=== PATIENT | male | born 1950 | race Caucasian/White ===

== ENCOUNTER 2022-04-07 04:52 | Observation (INO) | payer MEDICARE ==
[2022-04-07] MEDS ORDERED: Ondansetron PF 4 MG/2 ML Vial ONE (05:07)
[2022-04-07] MEDS ORDERED: Morphine 4 MG/ML VIAL ONE (05:07)
[2022-04-07] MEDS ORDERED: Ketorolac Tromethamine 30 MG/ML VIAL ONE (05:08)
[2022-04-07 05:27] LABS: #Basophils 0.1 10x3/uL (0.0-0.2); #Eosinphils 0.3 10x3/uL (0.0-0.5); #Monocytes 0.8 10x3/uL (0.0-1.1); #Neutrophils 3.9 10x3/uL (1.5-8.4); %Basophils 1.8 % (0.0-2.0); %Eosinophils 5.1 % (0.0-6.0); %Monocytes 12.4 % (0.0-10.0); %Neutrophils 62.4 % (40.0-75.0); Hemoglobin 14.2 g/dL (13.5-17.5); Mean Corpuscular HGB CONC 33.8 g/dL (32.0-36.0); Mean Corpuscular Hemoglobin 30.9 pg (27.0-33.0); Mean Corpuscular Volume 91.3 fl (81.2-95.1); Platelet Count 175 10x3/uL (150-450); RBC Distribution Width 14.1 % (11.5-14.5); White Blood Cell (WBC) Count 6.3 10x3/uL (3.5-10.5)
[2022-04-07 05:50] LABS: ALT (SGPT) 18 U/L (8-55); AST (SGOT) 31 U/L (5-34); Albumin 3.8 g/dL (3.4-4.8); Alkaline Phosphatase 110 U/L (40-110); Anion Gap 17 mmol/L (10-20); BUN (Urea Nitrogen) 15 mg/dL (8.4-25.7); Bilirubin, Total 1.8 mg/dL (0.2-1.2); Calc. Creatinine Clearance 0 mL/min (70-130); Calcium 8.8 mg/dL (7.8-10.44); Carbon Dioxide 24 mmol/L (23-31); Chloride 104 mmol/L (98-107); Globulin 2.7 g/dL (2.4-3.5); Glucose 120 mg/dL (83-110); Potassium 4.4 mmol/L (3.5-5.1); Protein, Total 6.5 g/dL (5.8-8.1); Sodium 141 mmol/L (136-145)
[2022-04-07 06:34] LABS: Bilirubin Neg (Negative); Blood, Urine 10 (Negative); Clarity Clear (Clear); Glucose, Urine (Dipstick) Normal (Negative); Ketone, Urine Negative (Negative); Leukocyte 500 (Negative); Nitrite Negative (Negative); Protein, Urine (Dipstick) Negative (Neg-Trace); Specific Gravity, Urine 1.015 (1.002-1.036); Urobilinogen Normal mg/dL (Less than 2)
[2022-04-07 06:43] LABS: Bacteria/HPF Rare-Few HPF (None Seen); RBC/HPF 0-3 HPF (0-3); Squamous Epithelial 0-3 HPF (0-3)
[2022-04-07 07:52] LABS: SARS-CoV-2 NAA Rapid Test DETECTED (NotDetected)
[2022-04-07] MEDS ORDERED: Bisacodyl 5 MG TAB PO PRN (08:14)
[2022-04-07] MEDS ORDERED: Ondansetron PF 4 MG/2 ML Vial IVP PRN (08:14)
[2022-04-07] MEDS ORDERED: Acetaminophen 325 MG TAB PO PRN (08:14)
[2022-04-07] MEDS ORDERED: Ondansetron ODT 4 MG TAB PO PRN (08:14)
[2022-04-07] MEDS ORDERED: Morphine 2 MG/ML VIAL SLOW IVP PRN (08:19)
[2022-04-07] MEDS ORDERED: cefTRIAXone\\ROCEPHIN 2 GM in Sodium Chloride 0.9% 100 ML IVPB SCH (11:45)
[2022-04-07] MEDS ORDERED: Iopamidol 30 ML ONE (13:15)
[2022-04-07] MEDS ORDERED: PROPOFOL 20 ML ONE (16:00)
[2022-04-07] MEDS ORDERED: Fentanyl 100 MCG/2 ML VIAL ONE ×2 (16:00→16:28)
[2022-04-07] MEDS ORDERED: Levofloxacin 500 mg/D5W 100 ml Premix Bag ONE (16:17)
[2022-04-07] MEDS ORDERED: ePHEDrine Sulfate 50 MG/10 ML VIAL ONE (16:26)
[2022-04-07] MEDS ORDERED: B & O ONE (16:38)
[2022-04-07 18:29] VITALS: BMI 24.1
[2022-04-07] MEDS: Sodium Chloride 0.9% 1,000 ML IV SCH (18:42)
[2022-04-07] MEDS: Senokot S 8.6-50 MG TAB PO PRN (20:11)
[2022-04-07] MEDS: Ketorolac Tromethamine 30 MG/ML VIAL IVP PRN (20:20)
[2022-04-08] MEDS: Sodium Chloride 0.9% 1,000 ML IV SCH (05:08)
[2022-04-08] MEDS: Ketorolac Tromethamine 30 MG/ML VIAL IVP PRN ×2 (05:08→11:03)
[2022-04-08] MEDS: Senokot S 8.6-50 MG TAB PO PRN (08:55)
[2022-04-08] MEDS ORDERED: cefTRIAXone\\ROCEPHIN 2 GM in Sodium Chloride 0.9% 100 ML IVPB SCH (12:00)
[2022-04-08] MEDS ORDERED: Phenazopyridine HCl 97.5 MG TABLET PO SCH (13:00)
[2022-04-08 13:10] VITALS: BP 115/76; TEMP 98.1
[2022-04-09] MEDS ORDERED: Trospium 20 MG TAB PO SCH (09:00)
== END 2022-04-08 18:00 | disposition home or self-care (01) ==
LOC: SUATTDRO 04:52 → CSHERS 04:52 → INTOOBSV 06:56 → CSHTELE 06:56 → CSHERS 15:55 → UNDOADMIN 18:05 → CSHTELE 18:05
PROVIDERS: ADMIT Emergency Medicine; ATTEND Family Medicine
PROC: 0T9680Z Drainage of Right Ureter with Drainage Device, Via Natural or Artificial Opening Endoscopic (ICD-10-PCS; principal; 2022-04-07)
DX: N13.2 Hydronephrosis with renal and ureteral calculous obstruction (principal); N21.0 Calculus in bladder; U07.1 COVID-19; N40.0 Benign prostatic hyperplasia without lower urinary tract symptoms; I10 Essential (primary) hypertension; Z79.899 Other long term (current) drug therapy; Z88.0 Allergy status to penicillin; Z88.5 Allergy status to narcotic agent
CPT/HCPCS: 51600; 52332; 74176; 74430; 80053; 84484; 85025; 87086; 96361; 96374; 96375 ×2; 96376; 99285; C2617; G0378 ×3; U0002; 81003; 81015; J0696; J1885; J1956; J2270; J2405; J2704; J3010; J3490; J7050; Q9967

== ENCOUNTER 2023-05-01 12:57 | Outpatient (CLI) | payer MEDICARE | END 2023-05-01 12:58 | disposition home or self-care (01) | LOC: CSHCT 12:57 | PROVIDERS: ATTEND Urology | DX: N20.2 Calculus of kidney with calculus of ureter (principal); N13.4 Hydroureter; K44.9 Diaphragmatic hernia without obstruction or gangrene; K57.30 Diverticulosis of large intestine without perforation or abscess without bleeding | CPT/HCPCS: 74176 ==

== ENCOUNTER 2023-11-19 16:06 | Inpatient (IN) | payer MEDICARE ==
[~2023-11-19 16:06] MED LIST: Iopamidol 300 61% 100 ML VIAL FS ONE
[2023-11-19 16:28] LABS: Bilirubin Neg (Negative); Blood, Urine 10 (Negative); Clarity Clear (Clear); Glucose, Urine (Dipstick) Normal (Negative); Ketone, Urine Negative (Negative); Leukocyte 500 (Negative); Nitrite Negative (Negative); Protein, Urine (Dipstick) Negative (Neg-Trace); Specific Gravity, Urine 1.015 (1.005-1.030); Urobilinogen Normal mg/dL (Less than 2)
[2023-11-19 16:45] LABS: CAUTI Indications for Culture Pelvic or flank pain; RBC/HPF 0-3 HPF (0-3)
[2023-11-19 16:46] LABS: Bacteria/HPF 2+ HPF (None Seen); Squamous Epithelial 0-3 HPF (0-3)
[2023-11-19 16:47] LABS: Urine Culture Reflex No No
[2023-11-19 17:06] LABS: #Basophils 0.1 10x3/uL (0.0-0.2); #Eosinphils 0.1 10x3/uL (0.0-0.5); #Monocytes 0.6 10x3/uL (0.0-1.1); #Neutrophils 7.5 10x3/uL (1.5-8.4); %Basophils 0.8 % (0.0-2.0); %Eosinophils 0.8 % (0.0-6.0); %Lymphocytes 8.9 % (18.0-47.0); %Monocytes 6.3 % (0.0-10.0); %Neutrophils 82.8 % (40.0-75.0); Hemoglobin 12.9 g/dL (13.5-17.5); Mean Corpuscular HGB CONC 33.1 g/dL (32.0-36.0); Mean Corpuscular Hemoglobin 30.2 pg (27.0-33.0); Mean Corpuscular Volume 91.3 fl (81.2-95.1); Mean Platelet Volume 9.8 fl (7.4-10.4); Platelet Count 207 10x3/uL (150-450); RBC Distribution Width 12.8 % (11.5-14.5); Red Blood Cell (RBC) Count 4.27 10x6/uL (4.32-5.72)
[2023-11-19 17:22] LABS: ALT (SGPT) 17 U/L (8-55); AST (SGOT) 26 U/L (5-34); Alkaline Phosphatase 95 U/L (40-110); Anion Gap 11 mmol/L (10-20); BUN (Urea Nitrogen) 16 mg/dL (8.4-25.7); Bilirubin, Total 1.6 mg/dL (0.2-1.2); Calc. Creatinine Clearance 0 mL/min (70-130); Calcium 8.8 mg/dL (7.8-10.44); Carbon Dioxide 27 mmol/L (23-31); Chloride 105 mmol/L (98-107); Estimated GFR 54; Globulin 2.7 g/dL (2.4-3.5); Glucose 139 mg/dL (83-110); Lipase 43 U/L (8-78); Potassium 3.3 mmol/L (3.5-5.1); Protein, Total 6.7 g/dL (5.8-8.1); Sodium 140 mmol/L (136-145)
[2023-11-19] MEDS ORDERED: Morphine 4 MG/ML VIAL ONE ×2 (17:23→18:32)
[2023-11-19] MEDS ORDERED: Ondansetron PF 4 MG/2 ML Vial ONE ×2 (17:24→18:50)
[2023-11-19 17:38] LABS: Troponin I Less than 0.010 ng/mL (< 0.028)
[2023-11-19] MEDS ORDERED: Famotidine/PF 20 mg/2ml Vial ONE (21:11)
[2023-11-19] MEDS ORDERED: Calcium Carbonate 500 MG ChewTAB PO PRN (21:50)
[2023-11-19] MEDS ORDERED: Senokot S 8.6-50 MG TAB PO PRN (21:50)
[2023-11-19] MEDS ORDERED: Guaifenesin DM 100-10/5 ML UDCUP PO PRN (21:50)
[2023-11-19] MEDS ORDERED: Ipratropium/Albuterol 3 ML NEB NEB PRN (22:03)
[2023-11-19 22:52] VITALS: BMI 26.3
[2023-11-19] MEDS: Lactated Ringer's 1,000 ML IV SCH (23:15)
[2023-11-19] MEDS: LevoFLOXacin 500 mg/D5W 500 MG in Premix 1 BAG IVPB SCH (23:18)
[2023-11-19] MEDS: Pantoprazole 40 MG VIAL IVP SCH (23:20)
[2023-11-19] MEDS: Metoclopramide HCl 10 MG (2 mL) VIAL IVP SCH (23:20)
[2023-11-20] MEDS: Potassium Chloride 20 MEQ in Premix 1 BAG IVPB SCH (00:25)
[2023-11-20] MEDS: Lidocaine 2% Viscous 10 mL, Alum & Magn 30 mL SSW SCH (00:26)
[2023-11-20 01:03] LABS: Troponin I 0.014 ng/mL (< 0.028)
[2023-11-20] MEDS: Morphine 2 MG/ML VIAL SLOW IVP PRN (02:30)
[2023-11-20] MEDS: Ondansetron PF 4 MG/2 ML Vial IVP PRN (02:30)
[2023-11-20 04:07] LABS: #Basophils 0.1 10x3/uL (0.0-0.2); #Eosinphils 0.1 10x3/uL (0.0-0.5); #Monocytes 0.9 10x3/uL (0.0-1.1); #Neutrophils 5.2 10x3/uL (1.5-8.4); %Basophils 1.1 % (0.0-2.0); %Eosinophils 1.4 % (0.0-6.0); %Lymphocytes 14.1 % (18.0-47.0); %Monocytes 12.1 % (0.0-10.0); Hematocrit 36.4 % (38.8-50.0); Mean Corpuscular Hemoglobin 30.8 pg (27.0-33.0); Mean Corpuscular Volume 93.6 fl (81.2-95.1); Mean Platelet Volume 10.3 fl (7.4-10.4); Platelet Count 179 10x3/uL (150-450); RBC Distribution Width 12.7 % (11.5-14.5); Red Blood Cell (RBC) Count 3.89 10x6/uL (4.32-5.72); White Blood Cell (WBC) Count 7.3 10x3/uL (3.5-10.5)
[2023-11-20 04:17] LABS: Anion Gap 11 mmol/L (10-20); BUN (Urea Nitrogen) 16 mg/dL (8.4-25.7); Calc. Creatinine Clearance 69 mL/min (70-130); Calcium 8.3 mg/dL (7.8-10.44); Carbon Dioxide 26 mmol/L (23-31); Chloride 107 mmol/L (98-107); Estimated GFR 63; Glucose 98 mg/dL (83-110); Magnesium 1.9 mg/dL (1.6-2.6); Potassium 3.7 mmol/L (3.5-5.1); Sodium 140 mmol/L (136-145); Troponin I 0.018 ng/mL (< 0.028)
[2023-11-20] MEDS: Mometasone/Formoterol 60 PUFF AER INH SCH (06:30)
[2023-11-20 06:44] LABS: Amphetamine Not Detected (NotDetected); Barbiturates Screen Not Detected (NotDetected); Benzodiazepine Screen Not Detected (NotDetected); Cocaine Metabolite Screen Not Detected (NotDetected); Methadone Not Detected (NotDetected); Methamphetamine Not Detected (NotDetected); Opiate Screen Detected (NotDetected); Oxycodone Screen Not Detected (NotDetected); Phencyclidine (PCP) Not Detected (NotDetected); THC/Cannabinoid Screen Not Detected (NotDetected); Tricyclic Screen Not Detected (NotDetected)
[2023-11-20] MEDS: Folic Acid 1 MG TAB PO SCH (07:58)
[2023-11-20] MEDS: Pantoprazole 40 MG VIAL IVP SCH (07:58)
[2023-11-20] MEDS: Tamsulosin HCl 0.4 MG CAP PO SCH (08:01)
[2023-11-20] MEDS: Multivitamin W/ Minerals 1 TAB PO SCH (08:01)
[2023-11-20] MEDS: predniSONE 5 MG TAB PO SCH ×2 (08:01→23:40)
[2023-11-20] MEDS ORDERED: PAROXETINE HCL 10 MG PO SCH (09:00)
[2023-11-20] MEDS ORDERED: Metoclopramide HCl 10 MG (2 mL) VIAL IVP PRN (11:03)
[2023-11-20] MEDS: Dutasteride 0.5 MG CAP PO SCH (11:11)
[2023-11-20] MEDS ORDERED: hydrALAZINE 20 MG/ML VIAL SLOW IVP PRN (12:58)
[2023-11-20 16:15] LABS: Hemoglobin A1c 5.5 % (4.0-6.0)
[2023-11-20] MEDS ORDERED: Communication Order-Pharmacy FS SCH (17:36)
[2023-11-20] MEDS: Sodium Chloride 0.9% 1,000 ML IV SCH (18:27)
[2023-11-20] MEDS: Metoprolol Tartrate 5 MG (5 mL) VIAL IVP SCH (18:28)
[2023-11-20] MEDS: ALPRAZolam 0.25 MG TAB PO PRN (20:02)
[2023-11-20] MEDS: Enoxaparin 100 MG (1 mL) SYRINGE SC SCH (20:03)
[2023-11-20] MEDS ORDERED: Electrolyte Replacement Protocol FS SCH (20:30)
[2023-11-20] MEDS ORDERED: NIFEdipine XL 30 MG ER.TAB PO SCH (21:00)
[2023-11-20] MEDS ORDERED: Enoxaparin 40 MG (0.4 mL) SYRINGE SC SCH (21:00)
[2023-11-20] MEDS: Ondansetron PF 4 MG/2 ML Vial IVP SCH (21:03)
[2023-11-20] MEDS: Morphine 4 MG/ML VIAL SLOW IVP SCH (21:03)
[2023-11-20] MEDS: Magnesium 2 GM/50 ML(in water) 2 GM in Premix 1 BAG IVPB SCH (22:48)
[2023-11-20] MEDS: Metoprolol Tartrate 5 MG (5 mL) VIAL IVP PRN (22:57)
[2023-11-21 04:23] LABS: Anion Gap 14 mmol/L (10-20); BUN (Urea Nitrogen) 11 mg/dL (8.4-25.7); Calc. Creatinine Clearance 80 mL/min (70-130); Calcium 8.5 mg/dL (7.8-10.44); Carbon Dioxide 25 mmol/L (23-31); Chloride 105 mmol/L (98-107); Estimated GFR 74; Glucose 99 mg/dL (83-110); Magnesium 2.2 mg/dL (1.6-2.6); Potassium 3.6 mmol/L (3.5-5.1); Sodium 140 mmol/L (136-145)
[2023-11-21 04:26] LABS: #Basophils 0.1 10x3/uL (0.0-0.2); #Eosinphils 0.2 10x3/uL (0.0-0.5); #Monocytes 1.4 10x3/uL (0.0-1.1); #Neutrophils 10.1 10x3/uL (1.5-8.4); %Basophils 0.9 % (0.0-2.0); %Eosinophils 1.2 % (0.0-6.0); %Monocytes 11.1 % (0.0-10.0); %Neutrophils 79.2 % (40.0-75.0); Hematocrit 40.7 % (38.8-50.0); Hemoglobin 13.4 g/dL (13.5-17.5); Mean Corpuscular HGB CONC 32.9 g/dL (32.0-36.0); Mean Corpuscular Hemoglobin 30.8 pg (27.0-33.0); Mean Corpuscular Volume 93.6 fl (81.2-95.1); Mean Platelet Volume 10.5 fl (7.4-10.4); Platelet Count 202 10x3/uL (150-450); Red Blood Cell (RBC) Count 4.35 10x6/uL (4.32-5.72); White Blood Cell (WBC) Count 12.7 10x3/uL (3.5-10.5)
[2023-11-21] MEDS ORDERED: PROPOFOL 40 ML ONE (13:32)
[2023-11-22] MEDS: PATIENT'S HOME MEDICATION PO SCH (15:26)
[2023-11-23 05:07] LABS: Hematocrit 34.2 % (38.8-50.0); Mean Corpuscular HGB CONC 32.2 g/dL (32.0-36.0); Mean Corpuscular Hemoglobin 30.2 pg (27.0-33.0); Mean Platelet Volume 9.9 fl (7.4-10.4); Platelet Count 153 10x3/uL (150-450); RBC Distribution Width 13.1 % (11.5-14.5); Red Blood Cell (RBC) Count 3.64 10x6/uL (4.32-5.72); White Blood Cell (WBC) Count 15.1 10x3/uL (3.5-10.5)
[2023-11-23 05:23] LABS: Anion Gap 11 mmol/L (10-20); BUN (Urea Nitrogen) 17 mg/dL (8.4-25.7); Calc. Creatinine Clearance 53 mL/min (70-130); Carbon Dioxide 23 mmol/L (23-31); Chloride 109 mmol/L (98-107); Estimated GFR 46; Glucose 91 mg/dL (83-110); Potassium 3.5 mmol/L (3.5-5.1); Sodium 139 mmol/L (136-145)
[2023-11-23] MEDS: Potassium Chloride 20 MEQ TAB PO SCH (08:59)
[2023-11-23] MEDS: PAROXETINE 10 MG PO SCH (09:01)
[2023-11-23] MEDS: NIFEdipine XL 30 MG ER.TAB PO SCH (11:07)
[2023-11-23 12:15] VITALS: BP 188/85; TEMP 99.5
[2023-11-23] MEDS: Acetaminophen 325 MG TAB PO PRN (13:24)
== END 2023-11-23 13:43 | disposition home or self-care (01) | DRG 392 ==
LOC: CSHERS 16:06 → CSHTELE 21:56
PROVIDERS: ADMIT Student in an Organized Health Care Education/Training Program; ATTEND Internal Medicine
PROC: 0DJ08ZZ Inspection of Upper Intestinal Tract, Via Natural or Artificial Opening Endoscopic (ICD-10-PCS; principal; 2023-11-21)
DX: K44.9 Diaphragmatic hernia without obstruction or gangrene (principal); N39.0 Urinary tract infection, site not specified; J44.9 Chronic obstructive pulmonary disease, unspecified; I10 Essential (primary) hypertension; N40.0 Benign prostatic hyperplasia without lower urinary tract symptoms; F32.A Depression, unspecified; K21.9 Gastro-esophageal reflux disease without esophagitis; E86.0 Dehydration; E87.6 Hypokalemia; M31.6 Other giant cell arteritis; K22.2 Esophageal obstruction; I27.20 Pulmonary hypertension, unspecified; K25.9 Gastric ulcer, unspecified as acute or chronic, without hemorrhage or perforation; I48.0 Paroxysmal atrial fibrillation; K20.90 Esophagitis, unspecified without bleeding; Z88.1 Allergy status to other antibiotic agents; Z88.5 Allergy status to narcotic agent; Z88.2 Allergy status to sulfonamides; Z87.891 Personal history of nicotine dependence; Z79.899 Other long term (current) drug therapy; Z98.890 Other specified postprocedural states
CPT/HCPCS: 36415; 74177; 80048; 80053; 80306; 81001; 83036; 83690; 83735; 84484; 85025; 85027; 87077; 87086; 87186; 93005; 93010; 93306; 94664; 94760; 94762; 96374; 96375; 96376; C9113; J1650; J1956; J2270; J2272; J2405; J2704; J2765; J3475; J3480; J7050; J7120; J7512; Q9967; S0028

== ENCOUNTER 2025-06-13 20:49 | Emergency (ER) | payer MEDICARE ==
[2025-06-13 21:19] LABS: #Basophils 0.10 10x3/uL (0.0-0.2); #Eosinophils Less than 0.03 10x3/uL (0.0-0.5); #Monocytes 0.63 10x3/uL (0.0-1.1); #Neutrophils 6.16 10x3/uL (1.5-8.4); %Basophils 1.4 % (0.0-2.0); %Eosinophils 0.3 % (0.0-6.0); %Lymphocytes 5.7 % (18.0-47.0); %Monocytes 8.5 % (0.0-10.0); %Neutrophils 83.6 % (40.0-75.0); Glucose, Urine (Dipstick) >=1000 mg/dL (Negative); Hematocrit 40.0 % (38.8-50.0); Hemoglobin 12.9 g/dL (13.5-17.5); Leukocyte 500 (Negative); Mean Corpuscular Hemoglobin 30.8 pg (27.0-33.0); Mean Corpuscular Volume 95.5 fL (81.2-95.1); Platelet Count 179 10x3/uL (150-450); Protein, Urine (Dipstick) 30 mg/dl (Neg-Trace); Red Blood Cell (RBC) Count 4.19 10x6/uL (4.32-5.72); Specific Gravity, Urine 1.010 (1.005-1.030); White Blood Cell (WBC) Count 7.37 10x3/uL (3.5-10.5)
[2025-06-13 21:36] LABS: Bacteria/HPF 1+ HPF (None Seen); CAUTI Indications for Culture Dysuria,urgency,freq; RBC/HPF 0-3 HPF (0-3); WBC/HPF Greater than 50 HPF (0-3)
[2025-06-13 21:37] LABS: Urine Culture Reflex Yes Yes
[2025-06-13 21:42] LABS: ALT (SGPT) 19 U/L (Less than 45); AST (SGOT) 27 U/L (11-34); Albumin 3.6 g/dL (3.1-4.5); Alkaline Phosphatase 113 U/L (40-110); Anion Gap 19 mmol/L (10-20); BUN (Urea Nitrogen) 20 mg/dL (8.4-25.7); Bilirubin, Total 1.7 mg/dL (0.3-1.2); Calc. Creatinine Clearance 0 mL/min (70-130); Calcium 8.7 mg/dL (7.8-10.44); Carbon Dioxide 19 mmol/L (23-31); Chloride 107 mmol/L (98-107); Globulin 3.1 g/dL (2.4-3.5); Glucose 100 mg/dL (83-110); Potassium 4.0 mmol/L (3.5-5.1); Sodium 141 mmol/L (136-145)
[2025-06-13 21:50] LABS: Troponin I 0.013 ng/mL (< 0.028)
[2025-06-13] MEDS ORDERED: Ondansetron PF 4 MG/2 ML Vial ONE (22:21)
== END 2025-06-13 23:12 | disposition home or self-care (01) ==
LOC: CSHERS 20:49
DX: N39.0 Urinary tract infection, site not specified (principal); N20.0 Calculus of kidney; I13.0 Hypertensive heart and chronic kidney disease with heart failure and stage 1 through stage 4 chronic kidney disease, or unspecified chronic kidney disease; I50.9 Heart failure, unspecified; N18.9 Chronic kidney disease, unspecified; I48.91 Unspecified atrial fibrillation; Z79.899 Other long term (current) drug therapy
CPT/HCPCS: 71045; 74177; 80053; 81001; 84484; 85025; 87086; 87400; 87426; 93005; 96374; J2405